=== PATIENT | female | born 1945 | race Caucasian/White ===

== ENCOUNTER → 2021-03-22 | Outpatient (CLI) | payer OTHER ==
[~2021-03-22] VITALS: Ht 147.3 cm; Wt 60.3 kg
[~2021-03-22] MED LIST: ASA81BEC PO; CALCIUM500 MG PO; CARVEDILOL6.25 M1 PO; FOLITAB 500 CA1 EAC1 PO; FOLVITE-D 1,001 EAC1 PO; IPRAT-ALBUT 0.5-3 ML SUBLING; LEVO-T100 MCG PO; LOPERAMIDE2 MG PO; LORATIDINE 10 M10 M1 PO; MISTASSIST KIT1 EACH PO; NEURONTIN800 MG PO; ROSUVASTATIN CA10 MG PO; VITAMIN D325 MC5 PO; WELLBUTRIN 75 M75 M1 PO; WELLBUTRIN SR100 MG PO
[2021-03-22 09:19] LABS: ABSOLUTE NEUTROPHILS 4.8 thou/uL (1.4-8.2); BASOPHILS 0.8 % (0.0-2.0); HEMOGLOBIN 12.1 gm/dL (12.0-15.0); LYMPHOCYTES 17.3 % (24.0-44.0); MCH 33.4 pg (26.0-34.0); MCHC 33.6 g/dL (28.0-37.0); MCV 99.2 fL (80.0-100.0); MONOCYTES 9.6 % (1.0-8.0); PLATELET COUNT 177 thou/uL (150-400); POLYS 68.3 % (36.0-66.0); RBC 3.63 mil/uL (4.20-5.00); RDW 13.1 % (10.5-14.5)
[2021-03-22 09:26] VITALS: BP 112/57
[2021-03-22 09:30] LABS: ALBUMIN 3.6 g/dL (3.4-5.0); CREATININE 1.5 mg/dL (0.6-1.0); POTASSIUM 3.8 mmol/L (3.5-5.1); TOTAL BILIRUBIN 0.6 mg/dL (0.2-1.0); TOTAL PROTEIN 7.6 g/dL (6.4-8.2)
[2021-03-22 09:31] LABS: APTT 26.7 Seconds (24.5-32.8); PROTIME 10.9 Seconds (10.5-12.1)
== END | disposition home or self-care (01) ==
LOC: CATH 07:56
PROVIDERS: Surgery Vascular Surgery; ATTEND Nuclear Medicine Nuclear Cardiology
DX: I65.23 Occlusion and stenosis of bilateral carotid arteries (principal); I70.1 Atherosclerosis of renal artery; M79.604 Pain in right leg; M79.605 Pain in left leg; I13.0 Hypertensive heart and chronic kidney disease with heart failure and stage 1 through stage 4 chronic kidney disease, or unspecified chronic kidney disease; N18.9 Chronic kidney disease, unspecified; I50.9 Heart failure, unspecified; E78.5 Hyperlipidemia, unspecified; I25.10 Atherosclerotic heart disease of native coronary artery without angina pectoris; J44.9 Chronic obstructive pulmonary disease, unspecified; F32.9 Major depressive disorder, single episode, unspecified; E03.9 Hypothyroidism, unspecified; M10.9 Gout, unspecified; Z98.890 Other specified postprocedural states; Z79.899 Other long term (current) drug therapy; Z90.710 Acquired absence of both cervix and uterus; Z85.3 Personal history of malignant neoplasm of breast; Z96.642 Presence of left artificial hip joint; Z79.01 Long term (current) use of anticoagulants; Z79.82 Long term (current) use of aspirin